=== PATIENT | female | born 1990 | race Caucasian/White ===

== ENCOUNTER 2025-07-07 00:50 | Inpatient (IN) ==
[2025-07-07] MEDS ORDERED: CALCIUM CARBONATE 500 MG CHEWABLE TAB PO PRN (01:37)
[2025-07-07] MEDS ORDERED: OXYTOCIN 30 UNITS/NSS 30 UNITS/500 ML BAG IV PRN (01:37)
[2025-07-07] MEDS ORDERED: ACETAMINOPHEN 325 MG TAB PO PRN ×2 (01:37→09:45)
[2025-07-07 01:52] LABS: Hematocrit (blood only) 33.0 % (37.0-47.0); Hemoglobin 11.0 g/dl (12.0-16.0); Mean Corpuscular Hemoglobin 29.9 pg (25.0-34.0); Mean Corpuscular Volume 89.7 fL (80.0-100.0); Platelet Count 227 K/uL (130-400); RDW Standard Deviation 45.3 fL (36.4-46.3); Red Blood Count 3.68 M/uL (4.20-5.40); White Blood Count 11.39 K/ul (4.8-10.8)
[2025-07-07] MEDS ORDERED: Nursing to Pharmacy Communication SCH (02:00)
[2025-07-07] MEDS: LACTATED RINGER'S 1,000 ML IV PRN (02:19)
[2025-07-07] MEDS: PENICILLIN GK 6 MU in DEXTROSE 5% 250 ML IV STA (02:20)
[2025-07-07] MEDS: PENICILLIN GK 3 MU in DEXTROSE 5% 100 ML IV PRN (06:00)
[2025-07-07] MEDS: OXYTOCIN 30 UNITS/NSS 30 UNITS/500 ML BAG IV PRN ×2 (06:00→09:55)
--- NOTE | 2025-07-07 08:51 | Anesthesiology Consultation ---
Date of Service July 07, 2025 Assessment & Plan Chart Review Chart Review: Acceptable Risk for Surgery, Patient NOT seen in Pre Admission Testing and Acceptable Risk for Labor Epidural Consults Requested none ASA ASA2 Proposed Anesthesia Anesthesia Type: Spinal History Height/Weight Height: 5 ft 8 in Weight: 68.492 kg Allergies Allergy/AdvReac Type Severity Reaction Status Date / Time Sulfa (Sulfonamide Allergy Intermediate Hives Verified 07/07/25 01:09 Antibiotics) Medications Home Medications Medication Instructions Recorded Confirmed Last Taken 21-iron fu-folic acid 1 tab PO DAILY 11/28/24 07/07/25 07/06/25 [ Complete] breast pump #1 ea 05/23/25 07/04/25 Unknown aspirin 81 mg tablet,delayed 81 mg PO DAILY 07/07/25 07/07/25 07/05/25 release Active Medications Generic Name Dose Route Start Last Admin Trade Name Freq PRN Reason Stop Dose Admin Lactated Ringer's 1,000 mls @ 125 mls/hr 07/07/25 01:37 07/07/25 08:47 Lr IV 07/09/25 01:36 999 mls/hr .Q8H PRN Infusion L&D Protocol Protocol Penicillin G Potassium 3 mu/ 106 mls @ 100 mls/hr 07/07/25 01:50 07/07/25 07:30 Dextrose IV 07/17/25 01:49 Infused Q4H PRN Infusion GBS + Oxytocin 30 units in 500 mls @ 4 mls/hr 07/07/25 04:34 07/07/25 06:59 Pitocin 30 Units/Nss IV 07/09/25 04:33 0.24 units/hr .Q24H PRN 4 mls/hr Labor Induction/Augmentation Titration Protocol 0.24 UNITS/HR Past Medical History Medical History Spontaneous vaginal delivery [facility] [place] History of chicken pox gerd anemia Exercise / Class Metabolic Activity II 4-5 Yardwork/Stairs/Walk up hill Past Family History Family History Father Prostate cancer BRCA gene positive Denies family history of Ovarian cancer Breast cancer Colorectal cancer Past Surgical History Surgical History History of dental surgery gum S/P wisdom tooth extraction S/P hemorrhoidectomy S/P cystoscopy Past Anesthesia History No Hx of Anesthesia Complications and No Family Hx of Anesthesia Complications History of PONV No Hx of PONV and No Hx of Motion Sickness Social History Smoking Status: Never smoker Do You Dip or Chew Tobacco: No Hx Alcohol Use: No Hx Substance Use: No Physical Exam Vital Signs Last Vital Signs Temp 36.5 C 07/07/25 07:15 Pulse 99 H 07/07/25 08:46 Resp 18 07/07/25 08:25 BP 94/53 L 07/07/25 08:15 Pulse Ox 93 07/07/25 08:46 O2 Del Method Room Air 07/07/25 01:11 Testing Laboratory Results 07/07/25 01:37
[2025-07-07] MEDS: LIDOCAINE 1% LOCAL 20 ML VIAL INFIL PRN (09:25)
--- NOTE | 2025-07-07 09:37 | Delivery Summary ---
Vaginal Delivery Summary Date of Service July 07, 2025 Vaginal Delivery Summary and 2nd Degree LAC Normal spontaneous vaginal livery the patient arrived with rupture of membranes over the evening group B strep prophylaxis was initiated IV Pitocin was started she progressed to fully dilated no epidural delivered a baby in occiput anterior position. Once delivery of the head happened gentle traction on the baby to release the anterior shoulder from under the symphysis pubis easy delivery live vigorous male infant no nuchal cord clear fluid Cord cut and clamped Cord blood obtained placenta removed with traction IV Pitocin started uterine tone firm Second-degree tear was pair with 3-0 Vicryl sponge and instrument counts were correct rectal exam was negative for sutures or defects QBL per nursing record [facility] Vaginal Delivery Charge Delivery Type Details: and 2nd Degree LAC
[2025-07-07] MEDS ORDERED: HYDROCORTISONE ACETATE 25 MG SUPP PR PRN (09:45)
[2025-07-07] MEDS: fentANYL 2 MCG/ML BUPIVacaine 0.125%-NSS 100ML BAG ONE (10:12)
[2025-07-07] MEDS: LIDOCAINE 2%/EPINEPHRINE 1:200,000 20 ML PF ONE (10:12)
[2025-07-07] MEDS: BUPIVACAINE 0.25% PF 30 ML VIAL ONE (10:12)
[2025-07-07] MEDS: SODIUM CHLORIDE 0.9% PF INJ 10 ML VIAL ONE (10:12)
[2025-07-07] MEDS: DIPHTHER/TETAN/PERTUS Vaccine (Tdap, Adol/Adult) 0.5mL IM ONE (10:13)
[2025-07-07] MEDS: IBUPROFEN 600 MG TAB PO PRN (11:53)
[2025-07-07] MEDS: BENZOCAINE 20% SPRY 85 APPLN/85 GM CAN EXT PRN (21:29)
[2025-07-07] MEDS: DOCUSATE SODIUM 100 MG CAP PO SCH (21:33)
--- NOTE | 2025-07-08 06:25 | Obstetrical Progress Note ---
Date of Service July 08, 2025 Assessment & Plan (1) care following vaginal delivery: Plan 34 yo post- day 1 s/p . Feels well today. Vital signs stable Continue post- care Encourage ambulation and Pain controlled with ibuprofen Hgb stable Likely disharge home later today, follow up with Dr. Reina in 6 weeks. Admission and Anticipated Discharge Date Admission Date: July 07, 2025 Supervising Physician Co-Signing Physician Notes Resident Physician Supervision Note: I interviewed and examined the patient. Discussed with Dr. Shaffer and agree with findings and plan as documented in the note. Any exceptions or clarifications are listed here: [None] Documented By: Deanna Reina MD, FACOG Subjective 34 yo post- day 1 s/p . Ambulation: ambulating normally Voiding: no voiding problems Passing Gas:: Yes Passing Stool:: No Diet Tolerance:: regular diet Lochia:: Small Feeding Type:: breast feeding Current Pain Level: 2/10 Resting comfortably this AM in NAD. Denies SEARS, CP, SOB, N/V/D, LE pain/swelling. Review of Systems Review of Systems: All systems reviewed & are unremarkable except as noted in HPI & below Physical Exam Physical Exam: General: patient resting comfortably, NAD, non-toxic in appearance, AA&O x 4, answers questions appropriately. Skin: warm, dry, intact HEENT: NC/AT, anicteric sclera, conjunctiva without injection, moist mucus membranes. Heart: +S1/S2, regular, no m/r/g Lungs: equal air entry bilaterally, no rales/rhonchi/wheezes Abd: +BS, soft, NT/ND, uterine fundus firm 3 FBs below umbilicus Ext: warm, no clubbing/cyanosis or edema, Rosaline's neg. Neuro: nonfocal, patient AA&O x 4, speech intact, no facial droop, moving all extremities on command. Results & Data Vital Signs (Past 12 Hours) Vital Signs Temp Pulse Resp BP Pulse Ox O2 Del Method 07/08/25 03:51 36.4 C L 75 19 96/60 L 97 Room Air 07/07/25 23:52 36.7 C 77 17 101/65 98 Room Air 07/07/25 19:50 36.4 C L 87 17 103/68 98 Room Air Laboratory Results OB Labs: Blood Type AB Positive 12/03/24 Antibody Screen NEGATIVE 12/03/24 Hgb 10.6 g/dl (12.0-16.0) L 04/10/25 Hct 32.6 % (37.0-47.0) L 04/10/25 MCV 90.0 fL (80.0-100.0) 12/03/24 Plt Count 283 K/uL (130-400) 12/03/24 Rubella IgG Antibody Immune (Immune) 12/03/24 Treponema pallidum Ab Negative (Negative) 04/10/25 Hep Bs Antigen Negative (Negative) 12/03/24 Hepatitis C Antibody Negative (Negative) 12/03/24 HIV 1&2 Ab/P24 Ag 4thGn Negative (Negative) 12/03/24 Glucose 1 Hr 50 gm 137 mg/dl (70-130) H 04/10/25 OB Optional Labs: Chlamydia trachomatis RNA Not Detected (NotDetected) 12/03/24 Neisseria gonorrhoeae RNA Not Detected (NotDetected) 12/03/24 Resident Activity Tracking Resident Involvement: Resident Care Provided Care Provided: OB Delivery
[2025-07-08 06:26] LABS: Hematocrit (blood only) 29.4 % (37.0-47.0); Hemoglobin 9.3 g/dl (12.0-16.0); Mean Corpuscular Hemoglobin 30.4 pg (25.0-34.0); Mean Corpuscular Volume 96.1 fL (80.0-100.0); Platelet Count 222 K/uL (130-400); RDW Standard Deviation 49.8 fL (36.4-46.3); Red Blood Count 3.06 M/uL (4.20-5.40); White Blood Count 16.03 K/ul (4.8-10.8)
[2025-07-08] MEDS: PRENATAL VITAMIN 1 TAB PO SCH (07:38)
[2025-07-08 09:01] VITALS: RESP 16
[2025-07-08 15:51] VITALS: O2SAT 96
[2025-07-08 20:15] VITALS: BP 100/67; PULSE 86; TEMP 98.8
--- NOTE | 2025-07-09 12:20 | Coding Query ---
CODING QUERY To promote full compliance with coding requirements relating to patient care, provider participation is requested in all cases of clay modeler uncertainty. Please assist us with the question(s) below: Coding Question(s): Please specify below, the number of weeks of gestation of the upon admission: ( ) Number of weeks gestation of upon admission was known and was: 39 ( ) Number of weeks gestation of upon admission was unknown Physician's Response(s): Thank you Shalonda Giron Principal Diagnosis: "that condition established after study, to be chiefly responsible for occasioning the admission of the patient to the hospital for care." Co-Existing Principal Diagnosis: "when two or more diagnoses equally meet the criteria for principal diagnosis as determined by the circumstances of admission, diagnostic work up, and/or therapy provided, and the Alphabetic Index, Tabular List, or another coding guideline does not provide sequencing direction, any one of the diagnoses may be sequenced first." "When the physician has documented what appears to be a current diagnosis in the body of the record, but has not included the diagnosis in the final diagnostic statement, the physician should be asked whether the diagnosis should be added." (Source Coding [facility] 2 QTR90. p3-4) INES
== END 2025-07-08 22:10 | disposition home or self-care (01) | DRG 807 ==
LOC: OPB 00:50 → 4S1 00:52 → 4E2 13:00